=== PATIENT | female | born 1935 | race African-American/Black ===

== ENCOUNTER 2018-05-17 10:23 | Inpatient (IN) | payer MEDICARE, OTHER ==
[2018-05-17] VITALS (7 sets, daily range): BP systolic 148–187; BP diastolic 54–75
[~2018-05-17] VITALS: Ht 160 cm; Wt 57.6 kg
[2018-05-17 11:13] LABS: BILIRUBIN, URINE NEGATIVE (NEGATIVE); GLUCOSE, URINE (UA) NEGATIVE (NEGATIVE); KETONES,URINE NEGATIVE (NEGATIVE); LEUKOCYTE ESTERASE ,URINE 2+ (NEGATIVE); NITRITE,URINE NEGATIVE (NEGATIVE); PH,URINE 5 (4.5-8.0); PROTEIN,URINE NEGATIVE (NEGATIVE); UROBILINOGEN,URINE NORMAL MG/DL (0.0-1.0)
[2018-05-17 11:15] LABS: APPEARANCE,URINE SLIGHTLY CLOUDY; COLOR,URINE YELLOW
[2018-05-17 11:43] LABS: BASOPHILS % (AUTO) 1.3 % (0.0-2.0); EOSINOPHILS % (AUTO) 1.8 % (0.0-3.0); HEMATOCRIT 50.7 % (37.0-47.0); HEMOGLOBIN 15.5 G/DL (12.0-16.0); LYMPHOCYTES % (AUTO) 17.5 % (20.0-45.0); MEAN CORPUSCULAR VOLUME 83 FL (80-99); MONOCYTES % (AUTO) 6.4 % (1.0-10.0); PLATELET COUNT 480 K/UL (150-450); RED BLOOD COUNT 6.11 M/UL (4.20-5.40); RED CELL DISTRIBUTION WIDTH 14.4 % (11.6-14.8); WHITE BLOOD COUNT 8.7 K/UL (4.8-10.8)
[2018-05-17 12:10] LABS: ANION GAP 7 mmol/L (5-15); BLOOD UREA NITROGEN 4 mg/dL (7-18); CALCIUM 9.3 MG/DL (8.5-10.1); CARBON DIOXIDE 26 MMOL/L (21-32); CHLORIDE 105 MMOL/L (98-107); CREATININE 0.9 MG/DL (0.55-1.30); POTASSIUM 3.6 MMOL/L (3.5-5.1); SODIUM 138 MMOL/L (136-145)
[2018-05-17 12:16] LABS: ALANINE AMINOTRANSFERASE 18 U/L (12-78); ALBUMIN 3.3 G/DL (3.4-5.0); ALBUMIN/GLOBULIN RATIO 0.8 (1.0-2.7); ALKALINE PHOSPHATASE 129 U/L (46-116); ASPARTATE AMINO TRANSFERASE 24 U/L (15-37); BILIRUBIN,TOTAL 0.7 MG/DL (0.2-1.0)
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
[2018-05-17] MEDS ORDERED: Norco 5mg/325mg tab ORAL ONE (15:00)
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
[2018-05-17] MEDS ORDERED: Morphine Sulfate 2mg/ml Inj IVP PRN (17:45)
[2018-05-17] MEDS ORDERED: DiphenhydrAMINE 50mg/ml Inj IVP PRN (17:45)
[2018-05-17] MEDS ORDERED: Norco 5mg/325mg tab ORAL PRN (17:45)
[2018-05-17 19:01] LABS: ALANINE AMINOTRANSFERASE 16 U/L (12-78); ALBUMIN 3.2 G/DL (3.4-5.0); ALKALINE PHOSPHATASE 125 U/L (46-116); ANION GAP 10 mmol/L (5-15); ASPARTATE AMINO TRANSFERASE 20 U/L (15-37); BLOOD UREA NITROGEN 5 mg/dL (7-18); CARBON DIOXIDE 25 MMOL/L (21-32); CHLORIDE 103 MMOL/L (98-107); CREATININE 0.8 MG/DL (0.55-1.30); POTASSIUM 4.1 MMOL/L (3.5-5.1); SODIUM 138 MMOL/L (136-145)
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
[2018-05-18] VITALS (7 sets, daily range): BP systolic 134–205; BP diastolic 52–85
[2018-05-18] MEDS ORDERED: Morphine Sulfate 2mg/ml Inj IVP PRN (05:45)
[2018-05-18] MEDS ORDERED: DiphenhydrAMINE 50mg/ml Inj IVP PRN (05:45)
[2018-05-18 06:50] LABS: BASOPHILS % (AUTO) 1.1 % (0.0-2.0); EOSINOPHILS % (AUTO) 0.5 % (0.0-3.0); HEMATOCRIT 50.8 % (37.0-47.0); HEMOGLOBIN 16.5 G/DL (12.0-16.0); LYMPHOCYTES % (AUTO) 21.4 % (20.0-45.0); MEAN CORPUSCULAR VOLUME 82 FL (80-99); MONOCYTES % (AUTO) 11.7 % (1.0-10.0); NEUTROPHILS % (AUTO) 65.3 % (45.0-75.0); PLATELET COUNT 445 K/UL (150-450); RED BLOOD COUNT 6.22 M/UL (4.20-5.40); RED CELL DISTRIBUTION WIDTH 14.2 % (11.6-14.8); WHITE BLOOD COUNT 10.3 K/UL (4.8-10.8)
--- NOTE | 2018-05-18 07:10 | General Progress Note ---
Assessment/Plan Problem List: (1) Hyperglycemia ICD Codes: R73.9 - Hyperglycemia, unspecified SNOMED: 42362876 (2) Nasal bone fracture ICD Codes: S02.2XXA - Fracture of nasal bones, initial encounter for closed fracture SNOMED: 293319289 (3) Multiple rib fractures ICD Codes: S22.49XA - Multiple fractures of ribs, unspecified side, initial encounter for closed fracture SNOMED: 0736148 Assessment/Plan follow A1c level for now: BG monitoring and low dose NISS Subjective Allergies: Coded Allergies: PENICILLINS (Verified Allergy, Unknown, 10/31/11) All Systems: reviewed and negative except above Subjective events noted Objective Last 24 Hour Vital Signs Date Time Temp Pulse Resp B/P (MAP) Pulse Ox O2 Delivery O2 Flow Rate FiO2 05/18/18 05:52 189/75 05/18/18 04:45 205/85 05/18/18 04:00 98.4 91 20 191/81 98 98.4 05/17/18 23:47 99.0 98 19 148/75 99 99.0 05/17/18 21:07 99.5 96 16 156/67 99 99.5 05/17/18 17:19 98.6 96 25 170/54 96 Room Air 05/17/18 16:55 185/58 05/17/18 16:50 98.6 98 25 170/54 96 Room Air 98.6 05/17/18 14:35 98.6 93 23 187/63 95 Room Air 98.6 05/17/18 13:30 98.6 75 26 178/58 99 Room Air 98.6 05/17/18 12:17 98.6 76 25 181/66 99 Room Air 98.6 05/17/18 10:40 99.1 78 26 187/57 99 Room Air 99.1 05/17/18 10:21 97.2 74 16 136/50 98 Room Air 97.2 Laboratory Tests 05/17/18 10:46: Urine Color Yellow, Urine Appearance Slightly cloudy, Urine pH 5, Urine Specific [place] 1.015, Urine Protein Negative, Urine Glucose (UA) Negative, Urine Ketones Negative, Urine Occult Blood Negative, Urine Nitrite Negative, Urine Bilirubin Negative, Urine Urobilinogen Normal, Urine Leukocyte Esterase 2+ H, Urine RBC 0-2, Urine WBC 10-15H, Urine Squamous Epithelial Cells Few, Urine Bacteria Few 6/20/18 11:30: White Blood Count 8.7, Red Blood Count 6.11H, Hemoglobin 15.5, Hematocrit 50.7H , Mean Corpuscular Volume 83, Mean Corpuscular Hemoglobin 25.4L, Mean Corpuscular Hemoglobin Concent 30.6L, Red Cell Distribution Width 14.4, Platelet Count 480H, Mean Platelet Volume 6.2L, Neutrophils (%) (Auto) 73.0, Lymphocytes (%) (Auto) 17.5L, Monocytes (%) (Auto) 6.4, Eosinophils (%) (Auto) 1.8, Basophils (%) (Auto) 1.3, Prothrombin Time 10.5, Prothromb Time International Ratio 1.0, Activated Partial Thromboplast Time 25, Sodium Level 138, Potassium Level 3.6, Chloride Level 105, Carbon Dioxide Level 26, Anion Gap 7, Blood Urea Nitrogen 4L, Creatinine 0.9, Estimat Glomerular Filtration Rate , Glucose Level 140H, Calcium Level 9.3, Total Bilirubin 0.7, Aspartate Amino Transf (AST/SGOT) 24, Alanine Aminotransferase (ALT/SGPT) 18, Alkaline Phosphatase 129H, Troponin I 0.000, Total Protein 7.3, Albumin 3.3L, Globulin 4.0, Albumin/Globulin Ratio 0.8L, Lipase 91 05/17/18 18:15: Sodium Level 138, Potassium Level 4.1, Chloride Level 103, Carbon Dioxide Level 25, Anion Gap 10, Blood Urea Nitrogen 5L, Creatinine 0.8, Estimat Glomerular Filtration Rate , Glucose Level 153H, Calcium Level 9.0, Total Bilirubin 1.0, Aspartate Amino Transf (AST/SGOT) 20, Alanine Aminotransferase (ALT/SGPT) 16, Alkaline Phosphatase 125H, Total Protein 6.3L, Albumin 3.2L, Globulin 3.1, Albumin/Globulin Ratio 1.0 05/18/18 06:25: White Blood Count 10.3, Red Blood Count 6.22H, Hemoglobin 16.5H, Hematocrit 50.8H, Mean Corpuscular Volume 82, Mean Corpuscular Hemoglobin 26.5L, Mean Corpuscular Hemoglobin Concent 32.5, Red Cell Distribution Width 14.2, Platelet Count 445, Mean Platelet Volume 6.1L, Neutrophils (%) (Auto) 65.3, Lymphocytes ( %) (Auto) 21.4, Monocytes (%) (Auto) 11.7H, Eosinophils (%) (Auto) 0.5, Basophils (%) (Auto) 1.1, Sodium Level [Pending], Potassium Level [Pending], Chloride Level [Pending], Carbon Dioxide Level [Pending], Blood Urea Nitrogen [ Pending], Creatinine [Pending], Estimat Glomerular Filtration Rate [Pending], Glucose Level [Pending], Calcium Level [Pending], Total Bilirubin [Pending], Aspartate Amino Transf (AST/SGOT) [Pending], Alanine Aminotransferase (ALT/SGPT ) [Pending], Alkaline Phosphatase [Pending], Total Protein [Pending], Albumin [ Pending], Globulin [Pending] Height (Feet): 5 Height (Inches): 3.00 Weight (Pounds): 127 General Appearance: no apparent distress Neck: normal alignment Cardiovascular: normal rate Respiratory/Chest: decreased breath sounds Abdomen: normal bowel sounds Edema: no edema noted Arm (L), no edema noted Arm (R), no edema noted Leg (L), no edema noted Leg (R), no edema noted Pedal (L), no edema noted Pedal (R), no edema noted Generalized Objective Current Medications Medications (Trade) Dose Ordered Sig/Seth Route PRN Reason Start Time Stop Time Status Last Admin Dose Admin Acetaminophen (Tylenol) 650 mg Q4H PRN ORAL Mild Pain/Temp > 100.5 05/18/18 05:45 06/16/18 17:44 Acetaminophen/ Hydrocodone Bitart ([place] 5/325) 1 tab Q4H PRN ORAL Moderate Pain (Pain Scale 4-6) 05/18/18 05:45 05/24/18 17:44 Clonidine HCl (Catapres Tab) 0.1 mg ONCE ORAL 05/18/18 05:30 05/18/18 07:30 05/18/18 05:52 Diphenhydramine HCl (Benadryl) 25 mg Q4H PRN IVP Itching 05/18/18 05:45 06/16/18 17:44 Morphine Sulfate (Morphine Sulfate) 1 mg Q4H PRN IVP Severe Pain (Pain Scale 7-10) 05/18/18 05:45 6/27/18 17:44 Item Value Date Time Bedside Blood Glucose 126 mg/dl H 05/17/18 2323 Glucose Level 153 MG/DL H 05/17/18 1815 Glucose Level 140 MG/DL H 05/17/18 1130 Anil Beckwith MD May 18, 2018 07:10
[2018-05-18 07:53] LABS: ALANINE AMINOTRANSFERASE 14 U/L (12-78); ALBUMIN 3.1 G/DL (3.4-5.0); ALBUMIN/GLOBULIN RATIO 0.8 (1.0-2.7); ALKALINE PHOSPHATASE 124 U/L (46-116); ANION GAP 9 mmol/L (5-15); ASPARTATE AMINO TRANSFERASE 17 U/L (15-37); BILIRUBIN,TOTAL 1.3 MG/DL (0.2-1.0); BLOOD UREA NITROGEN 6 mg/dL (7-18); CALCIUM 8.7 MG/DL (8.5-10.1); CARBON DIOXIDE 25 MMOL/L (21-32); CHLORIDE 102 MMOL/L (98-107); CREATININE 0.9 MG/DL (0.55-1.30); POTASSIUM 3.7 MMOL/L (3.5-5.1); SODIUM 136 MMOL/L (136-145)
[2018-05-18 07:59] LABS: BILIRUBIN,DIRECT 0.3 MG/DL (0.0-0.3)
--- NOTE | 2018-05-18 10:33 | Consultation ---
Consult Note Consult Note DICT # [id number] Rubin Gonzales MD May 18, 2018 10:33
[2018-05-18] MEDS: NovoLOG Insulin Flexpen SUBQ SCH ×3 (11:58→20:37)
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
--- NOTE | 2018-05-18 16:40 | Cardiac Electrophysiology PN ---
Subjective Subjective [id number] Objective Last 24 Hour Vital Signs Date Time Temp Pulse Resp B/P (MAP) Pulse Ox O2 Delivery O2 Flow Rate FiO2 05/18/18 12:00 97.1 74 18 143/59 96 Room Air 97.1 05/18/18 12:00 77 05/18/18 08:00 97.0 80 18 138/57 97 97.0 05/18/18 08:00 76 05/18/18 07:17 84 152/83 05/18/18 05:52 189/75 05/18/18 04:45 205/85 05/18/18 04:00 98.4 91 20 191/81 98 98.4 05/17/18 23:47 99.0 98 19 148/75 99 99.0 05/17/18 21:07 99.5 96 16 156/67 99 99.5 05/17/18 17:19 98.6 96 25 170/54 96 Room Air 05/17/18 16:55 185/58 05/17/18 16:50 98.6 98 25 170/54 96 Room Air 98.6 Intake and Output 05/17/18 05/18/18 19:00 07:00 # Voids 2 Laboratory Tests Test 05/17/18 18:15 05/18/18 06:25 Sodium Level 138 MMOL/L (136-145) 136 MMOL/L (136-145) Potassium Level 4.1 MMOL/L (3.5-5.1) 3.7 MMOL/L (3.5-5.1) Chloride Level 103 MMOL/L (98-107) 102 MMOL/L (98-107) Carbon Dioxide Level 25 MMOL/L (21-32) 25 MMOL/L (21-32) Anion Gap 10 mmol/L (5-15) 9 mmol/L (5-15) Blood Urea Nitrogen 5 mg/dL (7-18) L 6 mg/dL (7-18) L Creatinine 0.8 MG/DL (0.55-1.30) 0.9 MG/DL (0.55-1.30) Estimat Glomerular Filtration Rate mL/min (>60) mL/min (>60) Glucose Level 153 MG/DL (74-106) H 115 MG/DL (74-106) H Calcium Level 9.0 MG/DL (8.5-10.1) 8.7 MG/DL (8.5-10.1) Total Bilirubin 1.0 MG/DL (0.2-1.0) 1.3 MG/DL (0.2-1.0) H Aspartate Amino Transf (AST/SGOT) 20 U/L (15-37) 17 U/L (15-37) Alanine Aminotransferase (ALT/SGPT) 16 U/L (12-78) 14 U/L (12-78) Alkaline Phosphatase 125 U/L (46-116) H 124 U/L (46-116) H Total Protein 6.3 G/DL (6.4-8.2) L 6.8 G/DL (6.4-8.2) Albumin 3.2 G/DL (3.4-5.0) L 3.1 G/DL (3.4-5.0) L Globulin 3.1 g/dL 3.7 g/dL Albumin/Globulin Ratio 1.0 (1.0-2.7) 0.8 (1.0-2.7) L White Blood Count 10.3 K/UL (4.8-10.8) Red Blood Count 6.22 M/UL (4.20-5.40) H Hemoglobin 16.5 G/DL (12.0-16.0) H Hematocrit 50.8 % (37.0-47.0) H Mean Corpuscular Volume 82 FL (80-99) Mean Corpuscular Hemoglobin 26.5 PG (27.0-31.0) L Mean Corpuscular Hemoglobin Concent 32.5 G/DL (32.0-36.0) Red Cell Distribution Width 14.2 % (11.6-14.8) Platelet Count 445 K/UL (150-450) Mean Platelet Volume 6.1 FL (6.5-10.1) L Neutrophils (%) (Auto) 65.3 % (45.0-75.0) Lymphocytes (%) (Auto) 21.4 % (20.0-45.0) Monocytes (%) (Auto) 11.7 % (1.0-10.0) H Eosinophils (%) (Auto) 0.5 % (0.0-3.0) Basophils (%) (Auto) 1.1 % (0.0-2.0) Direct Bilirubin 0.3 MG/DL (0.0-0.3) Microbiology Date/Time Source Procedure Growth Status 05/17/18 10:46 Urine,Clean Catch Urine Culture - Preliminary Resulted Leland Leung MD May 18, 2018 16:39
[2018-05-18] MEDS: Heparin 5000 units/ml inj SUBQ SCH (20:36)
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
[2018-05-19] VITALS: BP 184/74
[2018-05-19 04:00] VITALS: BP 200/88
[2018-05-19] MEDS ORDERED: Lisinopril 10mg tab ORAL SCH (05:00)
[2018-05-19] MEDS: NovoLOG Insulin Flexpen SUBQ SCH ×4 (06:16→20:30)
[2018-05-19 07:28] LABS: BASOPHILS % (AUTO) 1.4 % (0.0-2.0); EOSINOPHILS % (AUTO) 0.9 % (0.0-3.0); HEMATOCRIT 46.9 % (37.0-47.0); HEMOGLOBIN 14.8 G/DL (12.0-16.0); LYMPHOCYTES % (AUTO) 31.6 % (20.0-45.0); MEAN CORPUSCULAR VOLUME 82 FL (80-99); MONOCYTES % (AUTO) 10.2 % (1.0-10.0); NEUTROPHILS % (AUTO) 55.9 % (45.0-75.0); PLATELET COUNT 415 K/UL (150-450); RED BLOOD COUNT 5.74 M/UL (4.20-5.40); WHITE BLOOD COUNT 8.1 K/UL (4.8-10.8)
[2018-05-19 08:00] VITALS: BP 140/66
[2018-05-19 08:04] LABS: ALANINE AMINOTRANSFERASE 16 U/L (12-78); ALBUMIN 2.9 G/DL (3.4-5.0); ALBUMIN/GLOBULIN RATIO 0.8 (1.0-2.7); ALKALINE PHOSPHATASE 111 U/L (46-116); ANION GAP 9 mmol/L (5-15); ASPARTATE AMINO TRANSFERASE 17 U/L (15-37); BILIRUBIN,TOTAL 1.2 MG/DL (0.2-1.0); BLOOD UREA NITROGEN 9 mg/dL (7-18); CALCIUM 9.1 MG/DL (8.5-10.1); CARBON DIOXIDE 26 MMOL/L (21-32); CHLORIDE 103 MMOL/L (98-107); CREATININE 0.9 MG/DL (0.55-1.30); POTASSIUM 3.6 MMOL/L (3.5-5.1); SODIUM 138 MMOL/L (136-145)
[2018-05-19 08:06] LABS: BILIRUBIN,DIRECT 0.3 MG/DL (0.0-0.3)
[2018-05-19] MEDS: Heparin 5000 units/ml inj SUBQ SCH ×2 (09:29→20:30)
[2018-05-19 12:00] VITALS: BP 128/59
[2018-05-19] MEDS ORDERED: Lisinopril 10mg tab ORAL ONE (12:00)
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
[2018-05-19 16:00] VITALS: BP 133/61
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
--- NOTE | 2018-05-19 17:05 | General Progress Note ---
Assessment/Plan Problem List: (1) Hyperglycemia ICD Codes: R73.9 - Hyperglycemia, unspecified SNOMED: 84734718 (2) Nasal bone fracture ICD Codes: S02.2XXA - Fracture of nasal bones, initial encounter for closed fracture SNOMED: 353811504 (3) Multiple rib fractures ICD Codes: S22.49XA - Multiple fractures of ribs, unspecified side, initial encounter for closed fracture SNOMED: 6000172 Assessment/Plan follow A1c level - ordered but not done - will re order continue BG monitoring and low dose NISS Subjective Allergies: Coded Allergies: PENICILLINS (Verified Allergy, Unknown, 10/31/11) All Systems: reviewed and negative except above Subjective events noted Objective Last 24 Hour Vital Signs Date Time Temp Pulse Resp B/P (MAP) Pulse Ox O2 Delivery O2 Flow Rate FiO2 05/19/18 12:28 140/66 05/19/18 12:00 97.4 78 20 128/59 97 Room Air 97.4 05/19/18 08:00 97.7 78 19 140/66 95 Room Air 97.7 05/19/18 05:14 181/72 05/19/18 04:00 97.9 87 18 200/88 100 Room Air 97.9 05/19/18 04:00 86 05/19/18 00:00 99.1 72 18 184/74 98 Room Air 99.1 05/19/18 00:00 79 05/18/18 20:00 104 05/18/18 20:00 98.2 93 18 157/68 99 Room Air 98.2 Intake and Output 05/18/18 05/19/18 19:00 07:00 Intake Total 630 ml 50 ml Balance 630 ml 50 ml Intake Oral 630 ml 50 ml # Voids 1 # Bowel Movements 1 Laboratory Tests 05/19/18 07:00: White Blood Count 8.1, Red Blood Count 5.74H, Hemoglobin 14.8, Hematocrit 46.9, Mean Corpuscular Volume 82, Mean Corpuscular Hemoglobin 25.8L, Mean Corpuscular Hemoglobin Concent 31.6L, Red Cell Distribution Width 14.0, Platelet Count 415, Mean Platelet Volume 5.9L, Neutrophils (%) (Auto) 55.9, Lymphocytes (%) (Auto) 31.6, Monocytes (%) (Auto) 10.2H, Eosinophils (%) (Auto) 0.9, Basophils (%) ( Auto) 1.4, Sodium Level 138, Potassium Level 3.6, Chloride Level 103, Carbon Dioxide Level 26, Anion Gap 9, Blood Urea Nitrogen 9, Creatinine 0.9, Estimat Glomerular Filtration Rate , Glucose Level 130H, Calcium Level 9.1, Total Bilirubin 1.2H, Direct Bilirubin 0.3, Aspartate Amino Transf (AST/SGOT) 17, Alanine Aminotransferase (ALT/SGPT) 16, Alkaline Phosphatase 111, Total Protein 6.5, Albumin 2.9L, Globulin 3.6, Albumin/Globulin Ratio 0.8L Height (Feet): 5 Height (Inches): 3.00 Weight (Pounds): 127 General Appearance: no apparent distress Neck: normal alignment Cardiovascular: regular rhythm Respiratory/Chest: lungs clear Abdomen: normal bowel sounds Objective Current Medications Medications (Trade) Dose Ordered Sig/Seth Route PRN Reason Start Time Stop Time Status Last Admin Dose Admin Acetaminophen (Tylenol) 650 mg Q4H PRN ORAL Mild Pain/Temp > 100.5 05/18/18 05:45 06/16/18 17:44 Acetaminophen/ Hydrocodone Bitart ([place] 5/325) 1 tab Q4H PRN ORAL Moderate Pain (Pain Scale 4-6) 05/18/18 05:45 05/24/18 17:44 Dextrose (Dextrose 50%) 25 ml STAT PRN IV Hypoglycemia 05/18/18 07:15 06/17/18 07:14 Dextrose (Dextrose 50%) 50 ml STAT PRN IV Hypoglycemia 05/18/18 07:15 06/17/18 07:14 Diphenhydramine HCl (Benadryl) 25 mg Q4H PRN IVP Itching 05/18/18 05:45 06/16/18 17:44 Heparin Sodium (Porcine) (Heparin 5000 units/ml) 5,000 units EVERY 12 HOURS SUBQ 05/18/18 21:00 06/17/18 20:59 05/19/18 09:29 Hydralazine HCl (Apresoline) 10 mg Q1H PRN IV For High Blood Pressure 05/19/18 06:00 06/18/18 05:59 Insulin Aspart (NovoLOG) BEFORE MEALS AND HS SUBQ 05/18/18 11:30 06/17/18 11:29 05/19/18 11:46 Lisinopril (Prinivil) 20 mg DAILY ORAL 05/20/18 09:00 06/19/18 08:59 Morphine Sulfate (Morphine Sulfate) 1 mg Q4H PRN IVP Severe Pain (Pain Scale 7-10) 05/18/18 05:45 05/24/18 17:44 Item Value Date Time Bedside Blood Glucose 148 mg/dl H 05/19/18 1630 Bedside Blood Glucose 139 mg/dl H 05/19/18 1146 Bedside Blood Glucose 117 mg/dl 05/19/18 0630 Bedside Blood Glucose 159 mg/dl H 05/18/18 2100 Bedside Blood Glucose 110 mg/dl 05/18/18 1630 Anil Beckwith MD May 19, 2018 17:04
[2018-05-19] MEDS: Norco 5mg/325mg tab ORAL PRN (17:06)
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
[2018-05-19 20:00] VITALS: BP 133/68
[2018-05-20] VITALS: BP 140/60
[2018-05-20 04:00] VITALS: BP 160/72
[2018-05-20] MEDS: NovoLOG Insulin Flexpen SUBQ SCH ×2 (06:13→11:21)
[2018-05-20 07:07] LABS: BASOPHILS % (AUTO) 1.4 % (0.0-2.0); EOSINOPHILS % (AUTO) 1.7 % (0.0-3.0); HEMATOCRIT 46.4 % (37.0-47.0); HEMOGLOBIN 14.6 G/DL (12.0-16.0); LYMPHOCYTES % (AUTO) 24.8 % (20.0-45.0); MEAN CORPUSCULAR VOLUME 82 FL (80-99); MONOCYTES % (AUTO) 10.2 % (1.0-10.0); PLATELET COUNT 379 K/UL (150-450); RED BLOOD COUNT 5.64 M/UL (4.20-5.40); WHITE BLOOD COUNT 7.1 K/UL (4.8-10.8)
[2018-05-20 07:25] LABS: ANION GAP 7 mmol/L (5-15); BLOOD UREA NITROGEN 9 mg/dL (7-18); CALCIUM 8.9 MG/DL (8.5-10.1); CARBON DIOXIDE 28 MMOL/L (21-32); CHLORIDE 102 MMOL/L (98-107); CREATININE 0.9 MG/DL (0.55-1.30); POTASSIUM 3.6 MMOL/L (3.5-5.1); SODIUM 137 MMOL/L (136-145)
[2018-05-20 08:00] VITALS: BP 160/66
[2018-05-20] MEDS: Norco 5mg/325mg tab ORAL PRN (08:24)
[2018-05-20] MEDS: Heparin 5000 units/ml inj SUBQ SCH (08:30)
[2018-05-20] MEDS ORDERED: Lisinopril 20mg tab ORAL SCH (09:00)
--- NOTE | 2018-05-20 09:25 | Physician Query ---
--------- THIS DOCUMENT IS A PERMANENT PART OF THE MEDICAL RECORD --------- PLEASE COMPLETE THE DOCUMENT BEFORE SIGNING Dear Dr. Leung Date: 05/20/2018 Resource Recovery Engineer/CDS Name: Hernandez Vera Resource Recovery Engineer / CDS Phone # [phone] Exercise your independent professional judgment when responding to query. Question asked do not imply a particular answer is desired/expected Clinical Documentation States: "CHF" documented in Consultation and progress notes in past medical history and assessment. Can you please further clarify the status of "CHF": Acuity [] Acute [] Chronic [] Acute on Chronic Type [] Systolic [] Diastolic [] Systolic & Diastolic (Combined) [] Left Heart failure [] Other: Etiology [] CHF due to Hypertension [] Cardiomyopathy [] Valvular Heart Disease [] Coronary Artery Disease [] Unable to determine [] Other: Condition Present on Admission: [] Yes [] No []Clinically Undeterminable Please also document in your Progress Notes and/or Discharge Summary and indicate if the condition was present on admission. LIZZETH
[2018-05-20] MEDS ORDERED: LISINOPRIL20 MG ORAL (10:15)
[2018-05-20] MEDS ORDERED: NORVASC5 MG ORAL (10:18)
[2018-05-20 12:00] VITALS: BP 161/62
[2018-05-20 13:43] VITALS: BP 123/46
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
--- NOTE | 2018-05-21 22:15 | Diagnostic Imaging Report ---
APPROVED REPORT CPT Code: 76633 Present Symptoms Lower Extremity Pain: Bilateral BILATERAL: Imaging reveals a patent deep venous system bilaterally. There is no evidence of thrombus within the femoral, popliteal or tibial segments. The greater saphenous veins are also within normal limits. Doppler indicates normal spontaneous flow within these segments.
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
--- NOTE | 2018-05-24 11:39 | Physician Query ---
--------- THIS DOCUMENT IS A PERMANENT PART OF THE MEDICAL RECORD --------- PLEASE COMPLETE THE DOCUMENT BEFORE SIGNING Dear Dr. Leung Date: 05/20/2018 Hearing Aid Specialist/CDS Name: Hernandez Vera Hearing Aid Specialist / CDS Phone # [phone] Exercise your independent professional judgment when responding to query. Question asked do not imply a particular answer is desired/expected Clinical Documentation States: EKG does show any acute ischemic changes. Electrocardiogram showed normal left ventricular systolic function. No pericardial effusion. LABORATORY AND DIAGNOSTIC DATA: Her telemetry strip shows sinus rhythm with no acute ST-T wave abnormality and echocardiogram showed ejection fraction of 65% to 70% with moderate LV hypertrophy "CHF" documented in Consultation and progress notes in past medical history and assessment. Can you please further clarify the status of "CHF": Acuity [] Acute [] Chronic [] Acute on Chronic Type [] Systolic [] Diastolic [] Systolic & Diastolic (Combined) [] Left Heart failure [] Other: Etiology:[] CHF due to Hypertension [] Cardiomyopathy [] Valvular Heart Disease [] Coronary Artery Disease [] Unable to determine [] Other: Condition Present on Admission: [] Yes [] No []Clinically Undeterminable Please also document in your Progress Notes and/or Discharge Summary and indicate if the condition was present on admission. Leland Leung M.D. Date & Time [facility]
--- NOTE | 2018-05-29 13:32 | Cardiology Report ---
APPROVED REPORT EXAM: Two-dimensional and M-mode echocardiogram with Doppler and color Doppler. INDICATION Chest Pain M-Mode DIMENSIONS IVSd1.7 (0.7-1.1cm)Left Atrium (MM)3.4 (1.6-4.0cm) LVDd3.4 (3.5-5.6cm)Aortic Root3.0 (2.0-3.7cm) PWd1.1 (0.7-1.1cm)Aortic Cusp Exc.1.7 (1.5-2.0cm) IVSs2.2 cm LVDs1.7 (2.5-4.0cm) PWs1.4 cm Technically difficult study due to poor acoustical windows . Normal left ventricular chamber size, systolic function and wall motion to extent visualized. Left ventricular ejection fraction estimated to be 65-70 %. Moderate left ventricular hypertrophy by 2-D. No evidence of pericardial effusion. All other cardiac chamber sizes are within normal limits. Focal aortic valve sclerosis with adequate cusp excursion. Thickened mitral valve leaflets with normal excursion. Mitral annulus and aortic root calcification. Pulmonic valve not well visualized. Normal tricuspid valve structure. IVC at 1.9 cm with slightly physiologic collapse suggestive of increased RA pressure. A color flow and spectral Doppler study was performed and revealed: No aortic regurgitation. Moderate mitral regurgitation. Mitral diastolic velocities suggest reduced left ventricular relaxation c/w mild LV diastolic dysfunction (Grade I ). Mild tricuspid regurgitation. Tricuspid systolic velocities suggests peak right ventricular systolic pressure of 41mmHg. No Pulmonic regurgitation present.
== END 2018-05-20 14:05 | disposition home health service (06) | DRG 183 ==
LOC: EDBD 10:23 → EMR 10:58 → 4E 15:16 → EDBEDREQ 15:24 → 4E 18:32 → 2E 05-18 05:08
DX: S22.42XA Multiple fractures of ribs, left side, initial encounter for closed fracture (principal); I50.33 Acute on chronic diastolic (congestive) heart failure; S02.2XXA Fracture of nasal bones, initial encounter for closed fracture; I16.0 Hypertensive urgency; I11.0 Hypertensive heart disease with heart failure; F17.200 Nicotine dependence, unspecified, uncomplicated; R91.1 Solitary pulmonary nodule; Y04.2XXA Assault by strike against or bumped into by another person, initial encounter; Y92.009 Unspecified place in unspecified non-institutional (private) residence as the place of occurrence of the external cause; Z88.0 Allergy status to penicillin; F03.90 Unspecified dementia, unspecified severity, without behavioral disturbance, psychotic disturbance, mood disturbance, and anxiety; R07.89 Other chest pain; R73.9 Hyperglycemia, unspecified; E11.65 Type 2 diabetes mellitus with hyperglycemia
CPT/HCPCS: 36415; 70450; 70486; 71250; 80048; 80053; 81003; 82248; 82962; 83036; 83690; 84484; 85025; 85610; 85730; 87086; 93306; 93970; 93971; 99285; J1815